=== PATIENT | female | born 2000 | race Caucasian/White ===

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

== ENCOUNTER 2019-05-19 13:52 | Emergency (ER) | payer SELFPAY ==
[~2019-05-19] VITALS: Ht 165.1 cm; Wt 60.0 kg
[2019-05-19] MEDS ORDERED: ZOFRAN4 MG/TAB PO (14:54)
[2019-05-19 14:59] VITALS: BP 131/60
== END 2019-05-19 15:05 | disposition home or self-care (01) | DRG 93 ==
LOC: ED 13:52
DX: G89.29 Other chronic pain (principal); R10.9 Unspecified abdominal pain; M54.5 Low back pain; R11.2 Nausea with vomiting, unspecified; N83.209 Unspecified ovarian cyst, unspecified side; F17.200 Nicotine dependence, unspecified, uncomplicated

== ENCOUNTER 2019-07-28 19:04 | Emergency (ER) | payer OTHER ==
[~2019-07-28] VITALS: Ht 165.1 cm; Wt 53.0 kg
[~2019-07-28 19:04] MED LIST changes: +ZOFRAN4 MG/TAB PO
[2019-07-28 19:54] LABS: HEMATOCRIT 37.3 % (37.0-47.0); HEMOGLOBIN 12.2 g/dl (12.0-16.0); IMMATURE GRANULOCYTES 0.3 % (0.0-5.0); MEAN CELL VOLUME 88.6 fL CALC (80.0-100.0); MEAN CORPUSCULAR HGB CONC 32.7 g/L CALC (32.0-36.0); NEUT# 4.28 thou/uL (2.00-7.15); RED BLOOD COUNT 4.21 mill/uL (4.20-5.60)
[2019-07-28 19:56] LABS: URINE BILIRUBIN - DIPSTICK NEGATIVE (NEGATIVE); URINE BLOOD DIPSTICK NEGATIVE (NEGATIVE); URINE COLOR YELLOW; URINE GLUCOSE - DIPSTICK NEGATIVE (NEGATIVE); URINE KETONE NEGATIVE (NEGATIVE); URINE LEUK ESTERASE NEGATIVE (NEGATIVE); URINE NITRITE - DIPSTICK NEGATIVE (Negative); URINE PH 6.5 (4.5-8.0); URINE PROTEIN - DIPSTICK NEGATIVE (NEG-TRACE); URINE SPECIFIC GRAVITY >=1.030; URINE UROBILINOGEN - DIPSTICK 0.2 E.U./dL (0.2)
[2019-07-28 20:07] LABS: ALBUMIN 4.6 g/dL (3.2-5.0); ALKALINE PHOSPHATASE 67 u/l (38-126); AMYLASE 104 u/l (30-110); ANION GAP 12 (6-22 (CALC)); BUN 12 mg/dL (8-21); BUN/CREATININE RATIO 17 (12-20 (CALC)); CARBON DIOXIDE 26 mmol/l (22-30); CHLORIDE 105 mmol/l (95-108); CREATININE 0.7 mg/dL (0.5-1.0); GFR > 60 ML/MIN (>=60 (CALC)); GFR FOR AFR.AMER. > 60 ML/MIN (>=60 (CALC)); LIPASE 122 u/l (23-300); POTASSIUM 4.1 mmol/l (3.5-5.1); SGOT/AST 17 u/l (14-36); SODIUM 138 mmol/l (137-146); TOTAL PROTEIN 7.8 g/dL (6.3-8.2)
[2019-07-28 20:11] LABS: BILIRUBIN, TOTAL 0.4 mg/dL (0.0-1.4)
[2019-07-28] MEDS ORDERED: MONISTAT1 VA (22:07)
[2019-07-28 22:17] VITALS: BP 122/64
== END 2019-07-28 22:27 | disposition home or self-care (01) ==
LOC: ED 19:04
PROVIDERS: Emergency Medicine
DX: N76.0 Acute vaginitis (principal)
CPT/HCPCS: Q9967

== ENCOUNTER 2019-09-18 12:05 | Emergency (ER) | payer OTHER ==
[~2019-09-18] VITALS: Ht 165.1 cm; Wt 50.0 kg
[~2019-09-18 12:05] MED LIST changes: +MONISTAT1 VA
[2019-09-18 13:05] LABS: HEMATOCRIT 35.9 % (37.0-47.0); HEMOGLOBIN 12.1 g/dl (12.0-16.0); IMMATURE GRANULOCYTES 0.5 % (0.0-5.0); MEAN CELL VOLUME 86.1 fL CALC (80.0-100.0); MEAN CORPUSCULAR HGB CONC 33.7 g/L CALC (32.0-36.0); NEUT# 6.84 thou/uL (2.00-7.15); RED BLOOD COUNT 4.17 mill/uL (4.20-5.60); RED CELL DISTRI WIDTH 12.3 % (11.5-15.5)
[2019-09-18 13:15] LABS: URINE BILIRUBIN - DIPSTICK NEGATIVE (NEGATIVE); URINE BLOOD DIPSTICK NEGATIVE (NEGATIVE); URINE COLOR YELLOW; URINE GLUCOSE - DIPSTICK NEGATIVE (NEGATIVE); URINE KETONE NEGATIVE (NEGATIVE); URINE NITRITE - DIPSTICK NEGATIVE (Negative); URINE PH 7.5 (4.5-8.0); URINE PROTEIN - DIPSTICK NEGATIVE (NEG-TRACE); URINE SPECIFIC GRAVITY 1.015; URINE UROBILINOGEN - DIPSTICK 0.2 E.U./dL (0.2)
[2019-09-18 13:17] LABS: URINE LEUK ESTERASE SMALL (NEGATIVE)
[2019-09-18 13:19] LABS: URINE BACTERIA FEW hpf; URINE EPITHELIAL CELLS FEW EPI/hpf (0-FEW)
[2019-09-18 13:40] LABS: ALBUMIN 4.1 g/dL (3.2-5.0); ALKALINE PHOSPHATASE 62 u/l (38-126); ANION GAP 15 (6-22 (CALC)); BILIRUBIN, TOTAL 0.3 mg/dL (0.0-1.4); BUN 7 mg/dL (8-21); BUN/CREATININE RATIO 15 (12-20 (CALC)); CARBON DIOXIDE 23 mmol/l (22-30); CHLORIDE 100 mmol/l (95-108); CREATININE 0.5 mg/dL (0.5-1.0); GFR > 60 ML/MIN (>=60 (CALC)); GFR FOR AFR.AMER. > 60 ML/MIN (>=60 (CALC)); LIPASE 69 u/l (23-300); SGOT/AST 18 u/l (14-36); SODIUM 134 mmol/l (137-146); TOTAL PROTEIN 7.5 g/dL (6.3-8.2)
[2019-09-18 14:50] VITALS: BP 112/64
== END 2019-09-18 14:50 | disposition home or self-care (01) ==
LOC: ED 12:05
PROVIDERS: Family Medicine
DX: O98.311 Other infections with a predominantly sexual mode of transmission complicating pregnancy, first trimester (principal); Z3A.01 Less than 8 weeks gestation of pregnancy
CPT/HCPCS: J0561

== ENCOUNTER 2019-12-13 | Emergency (ER) | payer OTHER ==
[2019-12-13] MEDS ORDERED: PRENATA7 PO (16:36)
[2019-12-13 17:44] LABS: URINE BILIRUBIN - DIPSTICK NEGATIVE (NEGATIVE); URINE BLOOD DIPSTICK NEGATIVE (NEGATIVE); URINE COLOR YELLOW; URINE GLUCOSE - DIPSTICK NEGATIVE (NEGATIVE); URINE KETONE NEGATIVE (NEGATIVE); URINE LEUK ESTERASE NEGATIVE (NEGATIVE); URINE NITRITE - DIPSTICK NEGATIVE (Negative); URINE PROTEIN - DIPSTICK NEGATIVE (NEG-TRACE); URINE UROBILINOGEN - DIPSTICK 0.2 E.U./dL (0.2)
== END 2019-12-13 18:33 | disposition home or self-care (01) ==
DX: O26.892 Other specified pregnancy related conditions, second trimester (principal); R10.30 Lower abdominal pain, unspecified; Z3A.20 20 weeks gestation of pregnancy

== ENCOUNTER 2020-04-07 06:53 | Emergency (ER) | payer OTHER ==
[~2020-04-07 06:53] MED LIST changes: +PRENATA7 PO
[2020-04-07 08:20] VITALS: BP 141/75
== END 2020-04-07 08:30 | disposition left against medical advice (07) ==
LOC: ED 06:53
DX: O62.9 Abnormality of forces of labor, unspecified (principal); Z3A.36 36 weeks gestation of pregnancy; Z91.19 Patient's noncompliance with other medical treatment and regimen

== ENCOUNTER 2020-08-14 09:48 | Emergency (ER) | payer OTHER ==
[~2020-08-14] VITALS: Ht 165.1 cm; Wt 52.3 kg
[2020-08-14 11:08] LABS: HEMATOCRIT 34.2 % (37.0-47.0); IMMATURE GRANULOCYTES 0.3 % (0.0-5.0); MEAN CELL VOLUME 84.2 fL CALC (80.0-100.0); MEAN CORPUSCULAR HGB 27.1 pG CALC (26.0-32.0); MEAN CORPUSCULAR HGB CONC 32.2 g/dL CAL (32.0-36.0); NEUT# 8.42 thou/uL (2.00-7.15); RED BLOOD COUNT 4.06 mill/uL (4.20-5.60); RED CELL DISTRI WIDTH 13.7 % (11.5-15.5)
[2020-08-14 11:24] LABS: HCG SERUM/URINE (NEG/POS) NEGATIVE (NEGATIVE)
[2020-08-14 11:27] LABS: ALKALINE PHOSPHATASE 83 u/l (38-126); ANION GAP 11 (6-22 (CALC)); BUN 7 mg/dL (7-17); BUN/CREATININE RATIO 11 (12-20 (CALC)); CARBON DIOXIDE 24 mmol/l (22-30); CHLORIDE 103 mmol/l (95-108); CREATININE 0.7 mg/dL (0.5-1.0); GFR > 60 ML/MIN (>=60 (CALC)); GFR FOR AFR.AMER. > 60 ML/MIN (>=60 (CALC)); POTASSIUM 3.3 mmol/l (3.5-5.1); SGOT/AST 19 u/l (14-36); SODIUM 135 mmol/l (137-146)
[2020-08-14 11:29] LABS: BILIRUBIN, TOTAL 0.5 mg/dL (0.0-1.4)
[2020-08-14] MEDS ORDERED: CLARITIN10 M1 PO ×2 (11:42→20:02)
[2020-08-14] MEDS ORDERED: AMOXICILLIN500 MG PO (11:42)
[2020-08-14 12:02] VITALS: BP 110/70
== END 2020-08-14 12:11 | disposition home or self-care (01) ==
LOC: ED 09:48
PROVIDERS: Emergency Medicine
DX: J03.90 Acute tonsillitis, unspecified (principal); E84.9 Cystic fibrosis, unspecified; Z20.828 Contact with and (suspected) exposure to other viral communicable diseases

== ENCOUNTER 2021-05-26 07:30 | Emergency (ER) | payer OTHER ==
[~2021-05-26] VITALS: Ht 165.1 cm; Wt 60.0 kg
[~2021-05-26 07:30] MED LIST changes: +CLARITIN10 M1 PO
[2021-05-26 08:27] VITALS: BP 125/62
== END 2021-05-26 08:36 | disposition home or self-care (01) ==
LOC: ED 07:30
DX: M79.10 Myalgia, unspecified site (principal); E84.9 Cystic fibrosis, unspecified; Z20.822 Contact with and (suspected) exposure to COVID-19

== ENCOUNTER 2021-09-04 14:50 | Emergency (ER) | payer OTHER ==
[~2021-09-04] VITALS: Ht 165.1 cm; Wt 54.5 kg
[2021-09-04 15:21] LABS: HEMATOCRIT 35.3 % (37.0-47.0); HEMOGLOBIN 11.6 g/dl (12.0-16.0); IMMATURE GRANULOCYTES 0.1 % (0.0-5.0); MEAN CORPUSCULAR HGB 28.9 pG CALC (26.0-32.0); MEAN CORPUSCULAR HGB CONC 32.9 g/dL CAL (32.0-36.0); NEUT# 5.66 thou/uL (2.00-7.15); RED BLOOD COUNT 4.01 mill/uL (4.20-5.60)
[2021-09-04 15:39] LABS: ALBUMIN 4.3 g/dL (3.2-5.0); ALKALINE PHOSPHATASE 49 u/l (38-126); ANION GAP 12 (6-22 (CALC)); BILIRUBIN, TOTAL 0.4 mg/dL (0.0-1.4); BUN 7 mg/dL (7-17); BUN/CREATININE RATIO 13 (12-20 (CALC)); CARBON DIOXIDE 25 mmol/l (22-30); CHLORIDE 103 mmol/l (95-108); CREATININE 0.5 mg/dL (0.5-1.0); GFR > 60 ML/MIN (>=60 (CALC)); GFR FOR AFR.AMER. > 60 ML/MIN (>=60 (CALC)); LIPASE 108 u/l (23-300); POTASSIUM 3.9 mmol/l (3.5-5.1); SGOT/AST 17 u/l (14-36); SODIUM 136 mmol/l (137-146); TOTAL PROTEIN 7.6 g/dL (6.3-8.2)
[2021-09-04 16:17] LABS: URINE BILIRUBIN - DIPSTICK NEGATIVE (NEGATIVE); URINE BLOOD DIPSTICK NEGATIVE (NEGATIVE); URINE COLOR YELLOW; URINE GLUCOSE - DIPSTICK NEGATIVE (NEGATIVE); URINE KETONE NEGATIVE (NEGATIVE); URINE PH 7.5 (4.5-8.0); URINE PROTEIN - DIPSTICK NEGATIVE (NEG-TRACE); URINE SPECIFIC GRAVITY 1.025; URINE UROBILINOGEN - DIPSTICK 0.2 E.U./dL (0.2)
[2021-09-04 16:22] LABS: URINE LEUK ESTERASE SMALL (NEGATIVE); URINE NITRITE - DIPSTICK NEGATIVE (Negative)
[2021-09-04 16:30] LABS: URINE RBC 0-2 RBC/hpf (0-5); URINE SQUAMOUS EPITHELIAL CELL FEW EPI/hpf (0-FEW)
[2021-09-04] MEDS ORDERED: GYNE-LOTRIMIN1 % VA (18:35)
[2021-09-04] MEDS ORDERED: METRONIDAZOLE500 MG PO (18:35)
[2021-09-04 18:56] VITALS: BP 121/76
== END 2021-09-04 18:56 | disposition home or self-care (01) ==
LOC: ED 14:50
PROVIDERS: Family Medicine
DX: O23.591 Infection of other part of genital tract in pregnancy, first trimester (principal); O98.811 Other maternal infectious and parasitic diseases complicating pregnancy, first trimester; B37.3 Candidiasis of vulva and vagina; O99.281 Endocrine, nutritional and metabolic diseases complicating pregnancy, first trimester; E84.9 Cystic fibrosis, unspecified; Z3A.01 Less than 8 weeks gestation of pregnancy

== ENCOUNTER 2021-12-24 10:21 | Emergency (ER) | payer OTHER ==
[~2021-12-24] VITALS: Ht 165.1 cm; Wt 53.0 kg
[~2021-12-24 10:21] MED LIST changes: +GYNE-LOTRIMIN1 % VA; +METRONIDAZOLE500 MG PO
[2021-12-24 10:46] VITALS: BP 111/64
[2021-12-24 11:19] LABS: HEMATOCRIT 33.4 % (37.0-47.0); HEMOGLOBIN 11.3 g/dl (12.0-16.0); IMMATURE GRANULOCYTES 0.2 % (0.0-5.0); MEAN CORPUSCULAR HGB 30.8 pG CALC (26.0-32.0); MEAN CORPUSCULAR HGB CONC 33.8 g/dL CAL (32.0-36.0); NEUT# 2.82 thou/uL (2.00-7.15); RED BLOOD COUNT 3.67 mill/uL (4.20-5.60); RED CELL DISTRI WIDTH 13.3 % (11.5-15.5)
[2021-12-24 11:35] LABS: ALBUMIN 3.7 g/dL (3.2-5.0); ALKALINE PHOSPHATASE 41 u/l (38-126); ANION GAP 10 (6-22 (CALC)); BILIRUBIN, TOTAL 0.4 mg/dL (0.0-1.4); BUN 4 mg/dL (7-17); BUN/CREATININE RATIO 9 (12-20 (CALC)); CARBON DIOXIDE 24 mmol/l (22-30); CHLORIDE 105 mmol/l (95-108); CREATININE 0.4 mg/dL (0.5-1.0); GFR > 60 ML/MIN (>=60 (CALC)); GFR FOR AFR.AMER. > 60 ML/MIN (>=60 (CALC)); POTASSIUM 3.5 mmol/l (3.5-5.1); SGOT/AST 17 u/l (14-36); SODIUM 136 mmol/l (137-146)
[2021-12-24 11:36] LABS: URINE BILIRUBIN - DIPSTICK NEGATIVE (NEGATIVE); URINE BLOOD DIPSTICK NEGATIVE (NEGATIVE); URINE COLOR YELLOW; URINE GLUCOSE - DIPSTICK NEGATIVE (NEGATIVE); URINE KETONE NEGATIVE (NEGATIVE); URINE PH 7.5 (4.5-8.0); URINE PROTEIN - DIPSTICK NEGATIVE (NEG-TRACE); URINE UROBILINOGEN - DIPSTICK 0.2 E.U./dL (0.2)
[2021-12-24 11:37] LABS: URINE NITRITE - DIPSTICK NEGATIVE (Negative)
[2021-12-24 11:38] LABS: URINE LEUK ESTERASE SMALL (NEGATIVE)
[2021-12-24 11:48] LABS: URINE RBC 0-2 RBC/hpf (0-5); URINE SQUAMOUS EPITHELIAL CELL FEW EPI/hpf (0-FEW)
[2021-12-24 11:49] LABS: URINE CALCIUM OXALATE CRYSTALS FEW lpf
[2021-12-24 12:29] VITALS: BP 111/64
== END 2021-12-24 12:30 | disposition left against medical advice (07) ==
LOC: ED 10:21
PROVIDERS: Emergency Medicine
DX: O26.892 Other specified pregnancy related conditions, second trimester (principal); R10.32 Left lower quadrant pain; O99.282 Endocrine, nutritional and metabolic diseases complicating pregnancy, second trimester; E84.9 Cystic fibrosis, unspecified; Z3A.23 23 weeks gestation of pregnancy; Z91.19 Patient's noncompliance with other medical treatment and regimen

== ENCOUNTER 2022-01-13 09:45 | Emergency (ER) | payer OTHER ==
[~2022-01-13] VITALS: Ht 165.1 cm; Wt 68.0 kg
[2022-01-13 09:56] VITALS: BP 119/64
[2022-01-13 10:31] LABS: HEMOGLOBIN 10.5 g/dl (12.0-16.0); IMMATURE GRANULOCYTES 0.2 % (0.0-5.0); MEAN CELL VOLUME 90.1 fL CALC (80.0-100.0); MEAN CORPUSCULAR HGB 30.5 pG CALC (26.0-32.0); MEAN CORPUSCULAR HGB CONC 33.9 g/dL CAL (32.0-36.0); NEUT# 4.66 thou/uL (2.00-7.15); RED BLOOD COUNT 3.44 mill/uL (4.20-5.60); RED CELL DISTRI WIDTH 12.8 % (11.5-15.5)
[2022-01-13 10:41] LABS: URINE BILIRUBIN - DIPSTICK NEGATIVE (NEGATIVE); URINE BLOOD DIPSTICK NEGATIVE (NEGATIVE); URINE COLOR YELLOW; URINE GLUCOSE - DIPSTICK NEGATIVE (NEGATIVE); URINE KETONE NEGATIVE (NEGATIVE); URINE LEUK ESTERASE NEGATIVE (NEGATIVE); URINE PROTEIN - DIPSTICK NEGATIVE (NEG-TRACE); URINE SPECIFIC GRAVITY 1.015
[2022-01-13 10:43] LABS: URINE NITRITE - DIPSTICK NEGATIVE (Negative)
[2022-01-13 11:18] LABS: ALBUMIN 3.4 g/dL (3.2-5.0); ALKALINE PHOSPHATASE 48 u/l (38-126); ANION GAP 10 (6-22 (CALC)); BILIRUBIN, TOTAL 0.3 mg/dL (0.0-1.4); BUN 7 mg/dL (7-17); BUN/CREATININE RATIO 19 (12-20 (CALC)); CARBON DIOXIDE 20 mmol/l (22-30); CHLORIDE 107 mmol/l (95-108); CREATININE 0.4 mg/dL (0.5-1.0); GFR > 60 ML/MIN (>=60 (CALC)); GFR FOR AFR.AMER. > 60 ML/MIN (>=60 (CALC)); POTASSIUM 3.7 mmol/l (3.5-5.1); SGOT/AST 19 u/l (14-36); SODIUM 134 mmol/l (137-146); TOTAL PROTEIN 6.4 g/dL (6.3-8.2)
[2022-01-13 11:51] VITALS: BP 119/64
== END 2022-01-13 12:00 | disposition home or self-care (01) ==
LOC: ED 09:45
PROVIDERS: Family Medicine
DX: O99.891 Other specified diseases and conditions complicating pregnancy (principal); N89.8 Other specified noninflammatory disorders of vagina; O99.282 Endocrine, nutritional and metabolic diseases complicating pregnancy, second trimester; E84.9 Cystic fibrosis, unspecified; Z3A.26 26 weeks gestation of pregnancy